=== PATIENT | male | born 1955 | race Caucasian/White ===

== ENCOUNTER 2018-07-12 11:28 | Emergency (ER) | payer MEDICARE ==
[~2018-07-12 11:28] MED LIST: Iopamidol 370 76% 100 ML VIAL ONE
[2018-07-12 12:03] LABS: Mean Corpuscular HGB CONC 30.5 g/dL (32.0-36.0); Mean Corpuscular Hemoglobin 27.9 pg (27.0-31.0); Mean Corpuscular Volume 91.5 fL (78.0-98.0); Mean Platelet Volume 13.9 fL (7.4-10.4); Platelet Count 159 thou/uL (130-400); RBC Distribution Width 12.7 % (11.5-14.5); Red Blood Cell (RBC) Count 6.08 mill/uL (4.70-6.10); White Blood Cell (WBC) Count 7.6 thou/uL (4.8-10.8)
[2018-07-12 12:15] LABS: ALT (SGPT) 48 U/L (8-55); AST (SGOT) 36 U/L (5-34); Albumin 3.8 g/dL (3.4-4.8); Alkaline Phosphatase 109 U/L (40-150); Anion Gap 15 mmol/L (10-20); BUN (Urea Nitrogen) 17 mg/dL (8.4-25.7); Bilirubin, Total 0.5 mg/dL (0.2-1.2); Calc. Creatinine Clearance 0 mL/min (70-130); Calcium 9.9 mg/dL (7.8-10.44); Carbon Dioxide 23 mmol/L (23-31); Chloride 101 mmol/L (98-107); Estimated GFR-MDRD 90; Globulin 3.7 g/dL (2.4-3.5); Glucose 407 mg/dL (80-115); Potassium 4.2 mmol/L (3.5-5.1); Protein, Total 7.5 g/dL (5.8-8.1); Sodium 135 mmol/L (136-145)
[2018-07-12] MEDS ORDERED: Aspirin Chewable 81 MG TAB ONE (12:22)
[2018-07-12 12:24] LABS: #Basophils 0.1 thou/uL (0.0-0.2); #Eosinphils 0.3 thou/uL (0.0-0.7); #Lymphocytes 2.2 thou/uL (1.20-3.40); #Monocytes 0.5 thou/uL (0.11-0.59); #Neutrophils 4.4 thou/uL (1.40-6.50); %Basophils 1.2 % (0.0-1.0); %Eosinophils 4.6 % (0.0-10.0); %Lymphocytes 29.4 % (21.0-51.0); %Monocytes 6.9 % (0.0-10.0); %Neutrophils 57.9 % (42.0-75.0); Platelet Morphology Comment Appears Adequate; RBC Morphology Normal
--- NOTE | 2018-07-12 12:43 | CT ---
CT OF THE BRAIN WITHOUT CONTRAST: DATE: 07/12/2018. FINDINGS: Comparison is made with the 06/16/2013 CT. Reference was also made a 06/16/2013 MRI of the brain. The ventricles are normal in size for age and atrophy. There are a few focal low-density areas in th e left frontal lobe and left caudate nucleus consistent with tiny old lacunar infarcts. There is a f ocal low-density area in the peripheral left temporal lobe that is not seen on the prior examination. Its location does not explain the patient's current symptoms; however, it would be difficult to rul e out a small acute infarct (age indeterminate) versus artifact. There is no bleeding. No mass was seen. The calvarium appears intact. The paranasal sinuses are clear. IMPRESSION: 1. No acute findings in a distribution to explain the patient's symptoms. 2. Evidence of prior tiny lacunar infarcts, mainly on the left side. An old MRI also substantiated this. 3. Small focal low-density area in the peripheral left temporal lobe, not present on the prior CT sc an. While the location does not explain the current symptoms, it would be difficult to rule out an i nfarct here of indeterminate age. Depending upon his neurological presentation, an MRI should be con sidered. Findings discussed with Dr. Bermeo at 1219. CODE CR POS: HOME
[2018-07-12] MEDS ORDERED: Insulin Regular 300 UNITS/3 ML VIAL ONE (12:49)
--- NOTE | 2018-07-12 13:47 | RAD ---
RADIOGRAPH CHEST 1 VIEW: Date: 07/12/2018. HISTORY: A 62-year-old male with dyspnea. FINDINGS: There are no air space densities, pulmonary edema, pneumothorax, or cardiomegaly. The lateral costop hrenic angles are sharp. IMPRESSION: No acute cardiopulmonary findings. jn [] POS: [facility]
--- NOTE | 2018-07-12 14:13 | CT ---
CT AORTIC DISSECTION 07/12/[address] of the chest and abdomen was done covering the entire aorta for evaluation of possible diss ection. After bolus of IV contrast, axial slices were acquired followed by coronal and sagittal reconstructio ns. There is no evidence of aortic dissection or aneurysm. The patient has a bovine type of aortic arch w ith a common origin of the brachiocephalic and left common carotid arteries. There is substantial art eriosclerosis in the aorta, particularly the lower abdominal aorta. CT of the thorax portion of the exam was remarkable for substantial coronary arteriosclerosis. There is very poor filling of the right coronary artery with contrast compared to the left. I am not even s ure I see any filling in the proximal right coronary. This should be correlated with the patient's sy mptoms and EKG findings. There is no pericardial effusion. The lungs are clear except for some atelec tatic changes. There were no lobar infiltrates or masses of concern. The CT of the abdomen shows a small hiatal hernia. The liver, spleen, pancreas, gallbladder, adrenal glands, and kidneys showed no acute findings. A small subcentimeter cyst or two could be seen in the right kidney. The mesenteric vessels all fill with contrast. There is a substantial amount of plaque at the origins of the celiac and superior mesenteric arteries. There is substantial plaque in each renal artery and I am suspicious of some degree renal artery stenosis in the proximal right renal artery. The visible portions of bowel showed no dilation or wall thickening. No free air or free fluid was de tected. Incidental finding is severe spinal stenosis in the lower lumbar/sacral region of the spine. IMPRESSION: 1. No evidence of aortic aneurysm or dissection. 2. Prominent coronary arteriosclerosis. 3. Poor filling of the right coronary artery with contrast. I cannot rule out a blockage here. C orrelate as suggested above. 4. Small hiatal hernia. 5. Severe arteriosclerotic change of the lower aorta with possibly some right renal artery steno sis. There is substantial plaque at the origin of the celiac and SMA. 6. Severe spinal stenosis of the lumbosacral region. 9Findings discussed with Dr. Bermeo at 1324 on 07/12/18. POS: HOME
== END 2018-07-12 13:32 | disposition short-term general hospital (02) ==
LOC: BURERS 11:28
DX: G45.9 Transient cerebral ischemic attack, unspecified (principal); E11.65 Type 2 diabetes mellitus with hyperglycemia; I10 Essential (primary) hypertension; F17.210 Nicotine dependence, cigarettes, uncomplicated; I25.10 Atherosclerotic heart disease of native coronary artery without angina pectoris; Z79.4 Long term (current) use of insulin; Z86.73 Personal history of transient ischemic attack (TIA), and cerebral infarction without residual deficits; Z79.82 Long term (current) use of aspirin
CPT/HCPCS: 36416; 70450; 71045; 71275; 80053; 84484; 85025; 93005; J1815; Q9967

== ENCOUNTER 2020-03-10 09:23 | Emergency (ER) | payer MEDICARE ==
[2020-03-10] MEDS ORDERED: Boostrix 0.5 ML (Tdap) VIAL ONE (09:45)
[2020-03-10] MEDS ORDERED: Acetaminophen 500 MG TAB ONE (09:45)
[2020-03-10] MEDS ORDERED: Lidocaine 2% PF 5 ML VIAL ONE (09:55)
[2020-03-10] MEDS ORDERED: Bacitracin 1 PK ONE (10:04)
--- NOTE | 2020-03-10 13:30 | RAD ---
LEFT 3RD TOE: DATE: 03/10/2020. FINDINGS: No fracture or bony destructive lesion was seen. Dense calcification at the end of the toe is assume d to be related to calcification in the nail. No focal bony finding to explain pain or swelling was appreciated. IMPRESSION: No acute bony findings. POS: HOME
== END 2020-03-10 10:33 | disposition home or self-care (01) ==
LOC: BURERS 09:23
DX: L03.032 Cellulitis of left toe (principal); B35.1 Tinea unguium; E11.9 Type 2 diabetes mellitus without complications; Z79.4 Long term (current) use of insulin; Z86.73 Personal history of transient ischemic attack (TIA), and cerebral infarction without residual deficits; F17.210 Nicotine dependence, cigarettes, uncomplicated
CPT/HCPCS: 11750; 90471; 90715; J2001

== ENCOUNTER 2020-09-15 17:33 | Emergency (ER) | payer MEDICARE ==
[2020-09-15] MEDS ORDERED: Tranexamic Acid 1,000 MG/10 ML VIAL ONE (17:59)
[2020-09-15 18:01] LABS: Prothrombin Time 13.4 sec (12.0-14.7)
[2020-09-15 18:02] LABS: PTT 33.7 sec (22.9-36.1)
[2020-09-15 18:07] LABS: ALT (SGPT) 14 U/L (8-55); AST (SGOT) 14 U/L (5-34); Albumin 3.5 g/dL (3.4-4.8); Alkaline Phosphatase 94 U/L (40-110); Anion Gap 18 mmol/L (10-20); BUN (Urea Nitrogen) 16 mg/dL (8.4-25.7); Bilirubin, Total 0.4 mg/dL (0.2-1.2); Calc. Creatinine Clearance 0 mL/min (70-130); Calcium 9.4 mg/dL (7.8-10.44); Carbon Dioxide 22 mmol/L (23-31); Chloride 101 mmol/L (98-107); Globulin 4.3 g/dL (2.4-3.5); Glucose 176 mg/dL (80-115); Potassium 4.3 mmol/L (3.5-5.1); Protein, Total 7.8 g/dL (5.8-8.1); Sodium 137 mmol/L (136-145)
[2020-09-15 18:22] LABS: #Basophils 0.1 thou/uL (0.0-0.2); #Eosinphils 0.3 thou/uL (0.0-0.7); #Lymphocytes 2.6 thou/uL (1.20-3.40); #Monocytes 0.7 thou/uL (0.11-0.59); #Neutrophils 5.4 thou/uL (1.40-6.50); %Basophils 1.1 % (0.0-1.0); %Lymphocytes 28.6 % (21.0-51.0); %Monocytes 8.1 % (0.0-10.0); %Neutrophils 59.2 % (42.0-75.0); Hemoglobin 16.6 g/dL (14.0-18.0); Large Platelets SLIGHT; MDiff Complete? YES; Mean Corpuscular HGB CONC 31.4 g/dL (32.0-36.0); Mean Corpuscular Volume 89.1 fL (78.0-98.0); Mean Platelet Volume 12.3 fL (7.4-10.4); Platelet Count 206 thou/uL (130-400); RBC Distribution Width 14.2 % (11.5-14.5); Red Blood Cell (RBC) Count 5.91 mill/uL (4.70-6.10); White Blood Cell (WBC) Count 9.1 thou/uL (4.8-10.8)
[2020-09-15] MEDS ORDERED: Aspirin Chewable 81 MG TAB ONE (18:36)
== END 2020-09-15 20:40 | disposition short-term general hospital (02) ==
LOC: BURERS 17:33
DX: I63.9 Cerebral infarction, unspecified (principal); R29.701 NIHSS score 1; I25.10 Atherosclerotic heart disease of native coronary artery without angina pectoris; E11.9 Type 2 diabetes mellitus without complications; I10 Essential (primary) hypertension; F17.210 Nicotine dependence, cigarettes, uncomplicated
CPT/HCPCS: 70450; 70496; 70498; 71045; 80053; 84484; 85025; 85610; 85730; 93005; Q9967

== ENCOUNTER 2021-02-23 08:59 | Emergency (ER) | payer MEDICARE ==
[2021-02-23] MEDS ORDERED: Iopamidol 370 76% 100 ML VIAL FS ONE (09:00)
[2021-02-23] MEDS ORDERED: Aspirin Chewable 81 MG TAB ONE (09:44)
[2021-02-23 09:47] LABS: #Basophils 0.1 thou/uL (0.0-0.2); #Eosinphils 0.1 thou/uL (0.0-0.7); #Lymphocytes 1.4 thou/uL (1.20-3.40); #Monocytes 0.8 thou/uL (0.11-0.59); #Neutrophils 6.2 thou/uL (1.40-6.50); %Basophils 0.8 % (0.0-1.0); %Eosinophils 1.6 % (0.0-10.0); %Lymphocytes 15.8 % (21.0-51.0); %Neutrophils 72.7 % (42.0-75.0); Hemoglobin 15.4 g/dL (14.0-18.0); Mean Corpuscular HGB CONC 31.3 g/dL (32.0-36.0); Mean Corpuscular Hemoglobin 27.5 pg (27.0-31.0); Mean Corpuscular Volume 87.8 fL (78.0-98.0); Mean Platelet Volume 11.7 fL (7.4-10.4); Platelet Count 242 thou/uL (130-400); Red Blood Cell (RBC) Count 5.61 mill/uL (4.70-6.10); White Blood Cell (WBC) Count 8.6 thou/uL (4.8-10.8)
[2021-02-23 09:57] LABS: ALT (SGPT) 18 U/L (8-55); AST (SGOT) 22 U/L (5-34); Albumin 3.7 g/dL (3.4-4.8); Alkaline Phosphatase 105 U/L (40-110); Anion Gap 15 mmol/L (10-20); BUN (Urea Nitrogen) 12 mg/dL (8.4-25.7); Bilirubin, Total 0.6 mg/dL (0.2-1.2); Calc. Creatinine Clearance 0 mL/min (70-130); Calcium 8.9 mg/dL (7.8-10.44); Carbon Dioxide 25 mmol/L (23-31); Chloride 106 mmol/L (98-107); Globulin 3.3 g/dL (2.4-3.5); Glucose 111 mg/dL (80-115); Sodium 142 mmol/L (136-145)
[2021-02-23] MEDS ORDERED: Furosemide 40 MG/4 ML VIAL ONE (10:30)
[2021-02-23] MEDS ORDERED: Nitroglycerin 0.4 MG TAB 1 EACH ONE (10:30)
[2021-02-23 11:24] LABS: SARS-CoV-2 NAA Rapid Test Not Detected (NotDetected)
[2021-02-23 15:04] LABS: Troponin I 0.018 ng/mL (< 0.028)
[2021-02-23] MEDS ORDERED: Atorvastatin Calcium 40 MG TAB PO SCH (21:00)
[2021-02-23] MEDS ORDERED: Gabapentin 300 MG CAP PO SCH (21:00)
[2021-02-24] MEDS ORDERED: Furosemide 40 MG TAB ONE (08:54)
== END 2021-02-23 15:10 | disposition short-term general hospital (02) ==
LOC: BURERS 08:59
DX: I11.0 Hypertensive heart disease with heart failure (principal); I50.9 Heart failure, unspecified; E11.9 Type 2 diabetes mellitus without complications; I25.10 Atherosclerotic heart disease of native coronary artery without angina pectoris; Z86.73 Personal history of transient ischemic attack (TIA), and cerebral infarction without residual deficits; Z20.822 Contact with and (suspected) exposure to COVID-19
CPT/HCPCS: 36415; 36416; 71045; 71275; 80053; 83880; 84484; 85025; 85379; 93005; 96374; J1940; Q9967; U0002

== ENCOUNTER 2021-03-22 11:38 | Inpatient (IN) | payer MEDICARE ==
[2021-03-22] MEDS ORDERED: HYDROcodone/Acetaminophen 5/325 mg Tablet PO PRN ×2 (12:04→12:05)
[2021-03-22 13:50] LABS: #Basophils 0.1 thou/uL (0.0-0.2); #Eosinphils 0.4 thou/uL (0.0-0.7); #Lymphocytes 1.4 thou/uL (1.20-3.40); #Monocytes 0.8 thou/uL (0.11-0.59); #Neutrophils 7.3 thou/uL (1.40-6.50); %Basophils 0.8 % (0.0-1.0); %Eosinophils 4.2 % (0.0-10.0); %Lymphocytes 13.9 % (21.0-51.0); %Monocytes 7.7 % (0.0-10.0); %Neutrophils 73.5 % (42.0-75.0); Hemoglobin 11.7 g/dL (14.0-18.0); Mean Corpuscular HGB CONC 31.5 g/dL (32.0-36.0); Mean Corpuscular Hemoglobin 27.4 pg (27.0-31.0); Mean Corpuscular Volume 86.9 fL (78.0-98.0); Mean Platelet Volume 11.4 fL (7.4-10.4); Platelet Count 223 thou/uL (130-400); RBC Distribution Width 14.5 % (11.5-14.5); Red Blood Cell (RBC) Count 4.26 mill/uL (4.70-6.10)
[2021-03-22] MEDS ORDERED: Sodium Chloride 0.9% 1,000 ML IV SCH (14:00)
[2021-03-22 14:06] LABS: ALT (SGPT) 28 U/L (8-55); AST (SGOT) 31 U/L (5-34); Albumin 3.1 g/dL (3.4-4.8); Alkaline Phosphatase 119 U/L (40-110); Anion Gap 15 mmol/L (10-20); BUN (Urea Nitrogen) 16 mg/dL (8.4-25.7); Bilirubin, Total 0.6 mg/dL (0.2-1.2); Calc. Creatinine Clearance 138 mL/min (70-130); Calcium 9.3 mg/dL (7.8-10.44); Carbon Dioxide 28 mmol/L (23-31); Chloride 97 mmol/L (98-107); Globulin 3.8 g/dL (2.4-3.5); Glucose 162 mg/dL (80-115); Potassium 4.4 mmol/L (3.5-5.1); Protein, Total 6.9 g/dL (5.8-8.1); Sodium 136 mmol/L (136-145)
[2021-03-22 14:45] LABS: CKMB 3.2 ng/mL (0-6.6)
[2021-03-22 17:42] LABS: CKMB 2.6 ng/mL (0-6.6)
[2021-03-22] MEDS: Lantus 1000 UNITS/10 ML VIAL SC SCH (20:49)
[2021-03-22] MEDS: Atorvastatin Calcium 40 MG TAB PO SCH (20:51)
[2021-03-22] MEDS: HYDROcodone/Acetaminophen 5/325 mg Tablet PO PRN (20:56)
[2021-03-23] MEDS: Aspirin 81 mg Enteric Coated Tablet PO SCH (08:21)
[2021-03-23] MEDS: metFORMIN 500 MG TAB PO SCH (08:21)
[2021-03-23] MEDS: Clopidogrel Bisulfate 75 MG TAB PO SCH (08:21)
[2021-03-23] MEDS: Spironolactone 25 MG TAB PO SCH (08:23)
[2021-03-23] MEDS: Lisinopril 5 MG TAB PO SCH (08:24)
[2021-03-23] MEDS: Lantus 1000 UNITS/10 ML VIAL SC SCH ×2 (08:26→21:54)
[2021-03-23] MEDS ORDERED: FLU VACC QS2021-22(65YR UP)/PF 240 MCG/0.7 ML SYRINGE IM ONE (13:00)
[2021-03-23 20:33] LABS: SARS-CoV-2 PCR by NAA Not Detected (NotDetected)
[2021-03-23] MEDS: Atorvastatin Calcium 40 MG TAB PO SCH (21:54)
[2021-03-23] MEDS: HYDROcodone/Acetaminophen 5/325 mg Tablet PO PRN (21:59)
[2021-03-24] MEDS: Lantus 1000 UNITS/10 ML VIAL SC SCH ×2 (08:33→20:33)
[2021-03-24] MEDS: Lisinopril 5 MG TAB PO SCH (08:34)
[2021-03-24] MEDS: Spironolactone 25 MG TAB PO SCH (08:34)
[2021-03-24] MEDS: Aspirin 81 mg Enteric Coated Tablet PO SCH (08:34)
[2021-03-24] MEDS: Clopidogrel Bisulfate 75 MG TAB PO SCH (08:34)
[2021-03-24] MEDS: metFORMIN 500 MG TAB PO SCH (08:34)
[2021-03-24] MEDS: HYDROcodone/Acetaminophen 5/325 mg Tablet PO PRN (12:50)
[2021-03-24] MEDS ORDERED: Acetaminophen 325 MG TAB PO PRN (16:56)
[2021-03-24] MEDS: Atorvastatin Calcium 40 MG TAB PO SCH (20:34)
[2021-03-25] MEDS: Spironolactone 25 MG TAB PO SCH (09:30)
[2021-03-25] MEDS: metFORMIN 500 MG TAB PO SCH (10:45)
[2021-03-25] MEDS: Aspirin 81 mg Enteric Coated Tablet PO SCH (10:45)
[2021-03-25] MEDS: Clopidogrel Bisulfate 75 MG TAB PO SCH (10:45)
[2021-03-25] MEDS: Lisinopril 5 MG TAB PO SCH (10:46)
[2021-03-25] MEDS: Lantus 1000 UNITS/10 ML VIAL SC SCH (10:54)
[2021-03-25 11:45] VITALS: BMI 30.5
[2021-03-25] MEDS ORDERED: Lantus 1000 UNITS/10 ML VIAL SC SCH ×2 (12:00→21:00)
[2021-03-25] MEDS: Atorvastatin Calcium 40 MG TAB PO SCH (22:24)
[2021-03-26] MEDS: metFORMIN 500 MG TAB PO SCH (08:40)
[2021-03-26] MEDS: Spironolactone 25 MG TAB PO SCH (08:40)
[2021-03-26] MEDS: Clopidogrel Bisulfate 75 MG TAB PO SCH (08:41)
[2021-03-26] MEDS: Aspirin 81 mg Enteric Coated Tablet PO SCH (08:41)
[2021-03-26] MEDS: Lantus 1000 UNITS/10 ML VIAL SC SCH ×2 (08:41→20:23)
[2021-03-26] MEDS: Lisinopril 5 MG TAB PO SCH (08:42)
[2021-03-26 17:56] VITALS: TEMP 97.8
[2021-03-26] MEDS: Atorvastatin Calcium 40 MG TAB PO SCH (20:22)
[2021-03-27] MEDS: Spironolactone 25 MG TAB PO SCH (10:01)
[2021-03-27] MEDS: metFORMIN 500 MG TAB PO SCH (10:01)
[2021-03-27] MEDS: Aspirin 81 mg Enteric Coated Tablet PO SCH (10:02)
[2021-03-27] MEDS: Clopidogrel Bisulfate 75 MG TAB PO SCH (10:03)
[2021-03-27] MEDS: Lantus 1000 UNITS/10 ML VIAL SC SCH (10:03)
[2021-03-27] MEDS: Lisinopril 5 MG TAB PO SCH (10:04)
[2021-03-27 10:05] VITALS: BP 85/53
== END 2021-03-27 12:00 | disposition home or self-care (01) | DRG 948 ==
LOC: BURMED 11:55
PROVIDERS: ADMIT Family Medicine; ATTEND Family Medicine
DX: R53.1 Weakness (principal); I50.22 Chronic systolic (congestive) heart failure; I25.10 Atherosclerotic heart disease of native coronary artery without angina pectoris; Z20.822 Contact with and (suspected) exposure to COVID-19; I11.0 Hypertensive heart disease with heart failure; E11.9 Type 2 diabetes mellitus without complications; F17.210 Nicotine dependence, cigarettes, uncomplicated; E78.5 Hyperlipidemia, unspecified; B35.1 Tinea unguium; Z79.84 Long term (current) use of oral hypoglycemic drugs; Z95.1 Presence of aortocoronary bypass graft; Z79.82 Long term (current) use of aspirin; Z79.02 Long term (current) use of antithrombotics/antiplatelets; Z95.5 Presence of coronary angioplasty implant and graft; Z86.73 Personal history of transient ischemic attack (TIA), and cerebral infarction without residual deficits
CPT/HCPCS: 36416; 80053; 82553; 84484; 85025; 36415-59; J1815; J7050; U0003; U0005

== ENCOUNTER 2021-04-16 10:01 | Emergency (ER) | payer MEDICARE ==
[2021-04-16 10:27] LABS: #Basophils 0.1 thou/uL (0.0-0.2); #Eosinphils 0.5 thou/uL (0.0-0.7); #Lymphocytes 1.6 thou/uL (1.20-3.40); #Monocytes 0.7 thou/uL (0.11-0.59); #Neutrophils 7.3 thou/uL (1.40-6.50); %Basophils 0.7 % (0.0-1.0); %Eosinophils 4.6 % (0.0-10.0); %Lymphocytes 15.9 % (21.0-51.0); %Monocytes 7.2 % (0.0-10.0); %Neutrophils 71.7 % (42.0-75.0); Hemoglobin 11.4 g/dL (14.0-18.0); Mean Corpuscular HGB CONC 30.4 g/dL (32.0-36.0); Mean Corpuscular Volume 88.6 fL (78.0-98.0); Mean Platelet Volume 10.7 fL (7.4-10.4); Platelet Count 309 thou/uL (130-400); RBC Distribution Width 15.8 % (11.5-14.5); Red Blood Cell (RBC) Count 4.24 mill/uL (4.70-6.10); White Blood Cell (WBC) Count 10.1 thou/uL (4.8-10.8)
[2021-04-16 10:47] LABS: ALT (SGPT) 13 U/L (8-55); AST (SGOT) 17 U/L (5-34); Albumin 3.4 g/dL (3.4-4.8); Alkaline Phosphatase 135 U/L (40-110); Anion Gap 12 mmol/L (10-20); BUN (Urea Nitrogen) 15 mg/dL (8.4-25.7); Bilirubin, Total 0.3 mg/dL (0.2-1.2); Calc. Creatinine Clearance 0 mL/min (70-130); Calcium 9.2 mg/dL (7.8-10.44); Carbon Dioxide 29 mmol/L (23-31); Chloride 105 mmol/L (98-107); Globulin 4.2 g/dL (2.4-3.5); Glucose 101 mg/dL (80-115); Potassium 4.2 mmol/L (3.5-5.1); Protein, Total 7.6 g/dL (5.8-8.1); Sodium 142 mmol/L (136-145)
[2021-04-16] MEDS ORDERED: Nitroglycerin 2% Ointment 1 INCH/1 GM Packet ONE (11:12)
[2021-04-16] MEDS ORDERED: Furosemide 40 MG/4 ML VIAL ONE (11:12)
[2021-04-16 20:37] LABS: SARS-CoV-2 PCR by NAA Not Detected (NotDetected)
== END 2021-04-16 13:23 | disposition home or self-care (01) ==
LOC: BURERS 10:01
DX: I11.0 Hypertensive heart disease with heart failure (principal); I50.9 Heart failure, unspecified; E11.9 Type 2 diabetes mellitus without complications; E78.5 Hyperlipidemia, unspecified; I25.10 Atherosclerotic heart disease of native coronary artery without angina pectoris; F17.210 Nicotine dependence, cigarettes, uncomplicated; Z79.4 Long term (current) use of insulin; Z86.73 Personal history of transient ischemic attack (TIA), and cerebral infarction without residual deficits; Z79.899 Other long term (current) drug therapy; Z79.84 Long term (current) use of oral hypoglycemic drugs; Z20.822 Contact with and (suspected) exposure to COVID-19
CPT/HCPCS: 36415; 71045; 80053; 83880; 84484; 85025; 93005; 96374; J1940; U0003; U0005